=== PATIENT | male | born 1995 | race African-American/Black ===

== ENCOUNTER 2018-07-12 00:22 | Emergency (ER) | payer BC, SELFPAY ==
[2018-07-12 05:38] LABS: Bilirubin Negative (Negative); Blood Negative (Negative); Clarity Clear; Glucose Negative (Negative); Ketones Negative (Negative); Leukocyte Esterase Negative (Negative); Nitrite Negative (Negative); Urobilinogen 0.2 EU/dL (Up TO 0.2); pH 8.5 (5-8)
[2018-07-13 15:05] LABS: Chlamydia Result Negative; GC Result Negative; Specimen Description URINE
== END 2018-07-12 02:57 ==
LOC: ER 02:55
PROVIDERS: Emergency Provider Emergency Medicine
DX: N50.811 Right testicular pain (principal)
CPT/HCPCS: 87491; 87591; 99284; 81003

== ENCOUNTER 2018-07-12 08:05 | Outpatient (CLI) | payer BC, SELFPAY ==
--- NOTE | 2018-07-12 09:25 | DI.US_ITS ---
SYMPTOM/DIAGNOSIS: RT TESTICULAR PAIN SCROTAL ULTRASOUND: The right testicle measures 4 by 2.6 by 3.5 cm. The right epididymis measures 0.9 by 1.1 by 1.3 cm. The left testicle measures 4.2 by 3 by 2.7 cm. The left epididymis measures .8 by 1.5 by 1.2 cm. There is no evidence of torsion and there is no testicular mass. There are some apparent small varicoceles bilaterally. The examination is otherwise unremarkable.
== END 2018-07-12 08:25 ==
PROVIDERS: Visit Provider Emergency Medicine
DX: N50.811 Right testicular pain (principal); I86.1 Scrotal varices
CPT/HCPCS: 76870

== ENCOUNTER 2018-07-12 09:19 | Emergency (ER) | payer BC, SELFPAY ==
[2018-07-12 09:25] VITALS: BP 146/83; PULSE 70; RESP 18; TEMP 36.7; O2SAT 100
--- NOTE | 2018-07-12 09:32 | W.ED.GENAD ---
Discharge Plan Disposition Patient Disposition: HOME Condition: Improving Discharge Details Chief Complaint: Recheck Clinical Impression: Varicocele Primary Care Provider: [facility] Provider: Kayla Brambila Home Meds and New Rx's Prescriptions: No Action No Known Home Meds RF: 0 Discharge Instructions Instructions: Varicocele (ED), Testicle Pain (ED) Additional Instructions: Mild varicoceles were noted on your ultrasound. Encourage hydration. Advance activities as tolerated. If you develop fever/chills, change in urination, increased pain or other new/worsening symptoms please seek care urgently once again You will need follow-up with urology, is here for the next few days. If you do not hear from them, please call the number listed below. Referrals: Trace Bartholomew MD [ [facility] STAFF PHYSICIAN] - Medical Decision Making Patient is a 22-year-old male presents today for recheck and to discuss the results of his ultrasound. He was seen last night with chief complaint of soreness to his right testicle that has been intermittent, particularly worse with sitting. At that time, the provider performed a urinalysis as well as a bedside ultrasound. No disruption of blood flow was noted, no signs of infection. When he was seen last night, the pain had resolved. At this time, patient is not endorsing any discomfort. He reports he has not had any discomfort since the episode last night. Requested by the radiologist who advised no evidence of torsion but did note mild bilateral varicoceles. I discussed these results with the patient. We examined him, no pain or swelling at this time. Patient I discussed diagnosis and advised follow-up with urology. Referral will be sent. I advised he try to avoid activities that cause increased discomfort. We discussed new/worsening symptoms and when to seek care urgently once again. All of his quesitons and concerns were addressed, he is in agreement with this plan. HPI General Mode of arrival: ambulatory. Date/Time Provider Initiated Documentation: 07/12/18 09:30. Limitations to Documentation: no limitations. Information obtained by: patient and RN notes reviewed. History of Present Illness 22 year old M presents to the emergency department with the chief complaint of recheck of testicular discomfort, described as mild (none at this time), Quality is described as aching, and is localized to the genitals. Patient reports no radiation. Patient started experiencing this day(s) (pain occurred intermittently last night, worse on the right side) and it has been intermittent. No relieving factors improve symptom(s), Other factors that worsen symptoms (sitting) . Patient notes no other symptoms.. Patient did receive the following treatments prior to arrival, none Related Data Home Medications Medication Instructions Recorded Confirmed Unknown [No Known Home Meds] 05/05/17 05/05/17 Allergies Allergy/AdvReac Type Severity Reaction Status Date / Time No Known Allergies Allergy Unverified 05/05/17 21:54 General Stated Complaint: Recheck LEO: 5 Review of Systems Constitutional Reports as per HPI, Denies chills, Denies fever(s) and Denies poor appetite Cardiovascular Denies chest pain Respiratory Denies cough Gastrointestinal Denies abdominal pain, Denies change in bowel habits, Denies nausea and Denies vomiting Genitourinary Reports as per HPI Musculoskeletal Reports as per HPI and Denies back pain Integumentary/Breasts Reports as per HPI and Denies rash PFSH Social History Smoking/Tobacco Use Status: Never Alcohol Intake: never Substance use type: marijuana Do you feel safe at home: Yes Do you feel safe in your relationship?: Yes Exam Const General: cooperative, healthy appearing, comfortable, no acute distress, well developed and well groomed Nutritional Appearance: average body habitus and well nourished Orientation: alert and awake Resp Effort & Inspection: normal respiratory effort, able to speak in complete sentences and no respiratory distress Male General Exam: Yes normal external exam Penis: normal penis Meatus: meatus normal Scrotum: scrotum normal Testes: normal Back/Spine/Pelvis Back: no CVA tenderness Skin General skin exam: no rashes or lesions noted Trauma: no lacerations or abrasions Neuro General: alert and awake Cognition: normal cognition Speech: speech normal Gait: normal gait Psych Appearance: grossly normal and well kempt Mental Status: mental status grossly normal Speech and Movement: speech and movement normal Course Vital Signs Temperature 36.7 C 07/12/18 09:25 Pulse 70 07/12/18 09:25 Respiratory Rate 18 07/12/18 09:25 Blood Pressure 146/83 H 07/12/18 09:25 Pulse Oximetry 100 07/12/18 09:25 Temperature 36.7 C 07/12/18 09:25 Temperature Source Temporal Artery Scan 07/12/18 09:25 Pulse 70 07/12/18 09:25 Respiratory Rate 18 07/12/18 09:25 Respiratory Effort 07/12/18 09:28 Blood Pressure 146/83 H 07/12/18 09:25 Blood Pressure Position Sitting 07/12/18 09:25 Pulse Oximetry 100 07/12/18 09:25 Pain Level 2 07/12/18 09:25
--- NOTE | 2018-07-12 09:44 | ED.GENADUL_ITS ---
Discharge Plan Disposition Patient Disposition: HOME Condition: Improving Discharge Details Chief Complaint: Recheck Clinical Impression: Varicocele Primary Care Provider: [facility] Provider: Kayla Brambila Home Meds and New Rx's Prescriptions: No Action No Known Home Meds RF: 0 Discharge Instructions Instructions: Varicocele (ED), Testicle Pain (ED) Additional Instructions: Mild varicoceles were noted on your ultrasound. Encourage hydration. Advance activities as tolerated. If you develop fever/chills, change in urination, increased pain or other new/worsening symptoms please seek care urgently once again You will need follow-up with urology, is here for the next few days. If you do not hear from them, please call the number listed below. Referrals: Trace Bartholomew MD [ [facility] STAFF PHYSICIAN] - Medical Decision Making Patient is a 22-year-old male presents today for recheck and to discuss the results of his ultrasound. He was seen last night with chief complaint of soreness to his right testicle that has been intermittent, particularly worse with sitting. At that time, the provider performed a urinalysis as well as a bedside ultrasound. No disruption of blood flow was noted, no signs of infection. When he was seen last night, the pain had resolved. At this time, patient is not endorsing any discomfort. He reports he has not had any discomfort since the episode last night. Requested by the radiologist who advised no evidence of torsion but did note mild bilateral varicoceles. I discussed these results with the patient. We examined him, no pain or swelling at this time. Patient I discussed diagnosis and advised follow-up with urology. Referral will be sent. I advised he try to avoid activities that cause increased discomfort. We discussed new/worsening symptoms and when to seek care urgently once again. All of his quesitons and concerns were addressed, he is in agreement with this plan. HPI General Mode of arrival: ambulatory . Date/Time Provider Initiated Documentation: 07/12/18 09:30 . Limitations to Documentation: no limitations . Information obtained by: patient and RN notes reviewed . History of Present Illness 22 year old M presents to the emergency department with the chief complaint of recheck of testicular discomfort, described as mild (none at this time), Quality is described as aching, and is localized to the genitals. Patient reports no radiation. Patient started experiencing this day(s) (pain occurred intermittently last night, worse on the right side) and it has been intermittent. No relieving factors improve symptom(s), Other factors that worsen symptoms (sitting) . Patient notes no other symptoms.. Patient did receive the following treatments prior to arrival, none Related Data Home Medications Medication Instructions Recorded Confirmed Unknown [No Known Home Meds] 05/05/17 05/05/17 Allergies Allergy/AdvReac Type Severity Reaction Status Date / Time No Known Allergies Allergy Unverified 05/05/17 21:54 General Stated Complaint: Recheck LEO: 5 Review of Systems Constitutional Reports as per HPI, Denies chills, Denies fever(s) and Denies poor appetite Cardiovascular Denies chest pain Respiratory Denies cough Gastrointestinal Denies abdominal pain, Denies change in bowel habits, Denies nausea and Denies vomiting Genitourinary Reports as per HPI Musculoskeletal Reports as per HPI and Denies back pain Integumentary/Breasts Reports as per HPI and Denies rash PFSH Social History Smoking/Tobacco Use Status: Never Alcohol Intake: never Substance use type: marijuana Do you feel safe at home: Yes Do you feel safe in your relationship?: Yes Exam Const General: cooperative, healthy appearing, comfortable, no acute distress, well developed and well groomed Nutritional Appearance: average body habitus and well nourished Orientation: alert and awake Resp Effort & Inspection: normal respiratory effort, able to speak in complete sentences and no respiratory distress Male General Exam: Yes normal external exam Penis: normal penis Meatus: meatus normal Scrotum: scrotum normal Testes: normal Back/Spine/Pelvis Back: no CVA tenderness Skin General skin exam: no rashes or lesions noted Trauma: no lacerations or abrasions Neuro General: alert and awake Cognition: normal cognition Speech: speech normal Gait: normal gait Psych Appearance: grossly normal and well kempt Mental Status: mental status grossly normal Speech and Movement: speech and movement normal Course Vital Signs Temperature 36.7 C 07/12/18 09:25 Pulse 70 07/12/18 09:25 Respiratory Rate 18 07/12/18 09:25 Blood Pressure 146/83 H 07/12/18 09:25 Pulse Oximetry 100 07/12/18 09:25 Temperature 36.7 C 07/12/18 09:25 Temperature Source Temporal Artery Scan 07/12/18 09:25 Pulse 70 07/12/18 09:25 Respiratory Rate 18 07/12/18 09:25 Respiratory Effort 07/12/18 09:28 Blood Pressure 146/83 H 07/12/18 09:25 Blood Pressure Position Sitting 07/12/18 09:25 Pulse Oximetry 100 07/12/18 09:25 Pain Level 2 07/12/18 09:25
--- NOTE | 2018-07-13 08:24 | PDOC.ERCMPRO ---
Care Management Progress Note 07/13-Kayla ARROYO requested assistance with a urology f/u for testicle pain and Varicocele. [facility]erral [facility]ed [facility] this [facility].
== END 2018-07-12 10:16 | disposition home or self-care (01) ==
LOC: ER 10:10
PROVIDERS: Emergency Provider Physician Assistant
DX: I86.1 Scrotal varices (principal)